=== PATIENT | male | born 1995 | race Caucasian/White ===

== ENCOUNTER 2022-10-05 12:41 | Emergency (ER) | payer OTHER, SELFPAY ==
--- NOTE | 2022-10-05 13:11 | ED_ITS ---
HPI - Nausea/Vomiting/Diarrhea General Chief complaint: Nausea/Vomiting/Diarrhea <Suzanne Chino CNP - Last Filed: 10/05/22 13:13> Stated complaint: bile nausea <Suzanne Chino CNP - Last Filed: 10/05/22 13:13> Time Seen by Provider: 10/05/22 15:20 <Suzanne Chino CNP - Last Filed: 10/05/22 13:13> Source: patient <Randy Painter DO - Last Filed: 10/05/22 15:29> Mode of arrival: ambulatory <Randy Painter DO - Last Filed: 10/05/22 15:29> Limitations: no limitations <DO Toribio Amezquita Last Filed: 10/05/22 15:29> History of Present Illness HPI Narrative: 27-year-old male presents emergency department with nausea vomiting diarrhea patient has had no recent antibiotic use he denies any fevers or chills states he has been able to work past week here for work note he denies any falls or injuries he had no vomiting this morning he denies chest pain shortness of breath patient does smoke marijuana daily denies having multiple ER visits but does vomit every morning and then does well. <Randy Painter DO - Last Filed: 10/05/22 15:29> MD elicited complaint: nausea, vomiting and diarrhea <DO Toribio Amezquita Last Filed: 10/05/22 15:29> Related Data Home medications: Previous Rx's Medication Instructions Recorded ondansetron 4 mg disintegrating 4 mg PO Q6H #14 tabs 10/05/22 tablet <Suzanne Chino CNP - Last Filed: 10/05/22 13:13> Allergies/Adverse reactions: Allergies Allergy/AdvReac Type Severity Reaction Status Date / Time No Known Allergies Allergy Verified 10/05/22 13:11 <Suzanne Chino CNP - Last Filed: 10/05/22 13:13> Review of Systems Review of Systems: Review of systems: General: Patient denies any fever chills recent illness or falls Musculoskeletal: Denies back pain or body aches or other injuries HEENT: denies headache, runny nose, ear pain Respiratory: denies shortness of breath, cough Cardiovascular: no chest pain or palpitations : denies dysuria, frequency Abdomen: Diarrhea nausea vomiting denies abdominal pain Extremities: no swelling, no pain Skin: no diaphoresis <Randy Painter DO - Last Filed: 10/05/22 15:29> Yes all other systems are reviewed and are negative <Randy Painter DO - Last Filed: 10/05/22 15:29> Physical Exam Vital Signs: Vital Signs: Last Vital Signs Temp 97 F 10/05/22 13:12 Pulse 80 10/05/22 13:12 Resp 16 10/05/22 13:12 BP 107/72 10/05/22 13:12 Pulse Ox 96 10/05/22 13:12 O2 Del Method 10/05/22 13:12 BMI result Body Mass Index 23.6 <Suzanne Chino PE ELECTRICAL ENGINEER - Last Filed: 10/05/22 13:13> Vital Signs: Last Vital Signs Temp 97 F 10/05/22 13:12 Pulse 80 10/05/22 13:12 Resp 16 10/05/22 13:12 BP 107/72 10/05/22 13:12 Pulse Ox 96 10/05/22 13:12 O2 Del Method 10/05/22 13:12 BMI result Body Mass Index 23.6 <Randy Chiujose DO - Last Filed: 10/05/22 15:29> General: Well-appearing well-nourished in no signs of distress HEENT: Normocephalic atraumatic Neck: No signs of JVD, no masses no tenderness or lymphadenopathy Cardiovascular: Regular rate and rhythm Respiratory: Clear to auscultation bilaterally Abdomen: Soft nontender no masses rectal exam performed guiac negative quality improvement coordinator (rn) confirmed. Extremities: Normal pedal pulses no signs of edema Skin: Dry warm no rashes Back: No tenderness full ROM <Randy DO Inocencio - Last Filed: 10/05/22 15:29> Course Course Course Narrative: This is an RME: Additional HPI, ROS, PE not included below will be deferred to primary provider. Patient is a 27 year old male who presents to the ED complaining of vomiting. States issues for years, but states worse over last few weeks. Every morning awakes, vomits large amount of yellow emesis with diarrhea, and associated pain. Denies pain at this time. Reports emesis only occurs in the morning, causing him to miss work for the past week. Plan: labs, urinalysis, viral testing <Suzanne Chino CNP - Last Filed: 10/05/22 13:13> Medical Decision Making Medical Decision Making MDM Narrative: Labs were all sent as well as serologies for COVID and flu her thinking back negative patient looks well on exam patient has no concerns for acute intra-abdominal process that requires CT scan or imaging patient is feeling fine at this time will send home with Ac. I did educate the patient on cannabis hyperemesis syndrome that can take up to 90 days for to get of system could explain as no help benefits with marijuana but he can cause this recurrent vomiting syndrome which can be disabling. Patient is okay with plan to go home. <Randy Painter DO - Last Filed: 10/05/22 15:29> Differential Diagnosis Differential Diagnoses: The differential diagnosis associated with the presentation includes <Randy Painter DO - Last Filed: 10/05/22 15:29> Cannabis hyperemesis hangover from drinking alcoholism pancreatitis hepatitis viral syndrome or anxiety. <Randy Painter DO - Last Filed: 10/05/22 15:29> Lab Data Result Diagrams: 10/05/22 13:37 10/05/22 13:37 <Suzanne Chino CNP - Last Filed: 10/05/22 13:13> Labs: Lab Results 10/05/22 10/05/22 10/05/22 Range/Units 13:37 13:37 13:37 WBC 6.4 (4.8-10.8) X10*3/uL RBC 4.88 (4.60-5.80) X10*6/uL Hgb 14.7 (14.0-18.0) g/dl Hct 42.1 (42.0-52.0) % MCV 86.3 (80.0-98.0) fL MCH 30.1 (27.0-33.0) pg MCHC 34.9 (31.0-36.0) g/dl RDW 12.6 (11.0-16.0) % Plt Count 232 (160-400) X10*3/uL MPV 9.0 L (9.4-12.4) fL Immature Gran % (Auto) 0.2 (0.0-0.4) % Neut % (Auto) 54.8 (45-73) % Lymph % (Auto) 36.5 (20-40) % [place] % (Auto) 6.4 (2-11) % Eos % (Auto) 1.6 (0-4) % Baso % (Auto) 0.5 (0-2) % Lymph # (Auto) 2.4 (1.2-4.9) X10*3/uL [place] # (Auto) 0.4 (0.1-1.2) X10*3/uL Eos # (Auto) 0.1 (0.0-0.4) X10*3/uL Baso # (Auto) 0.0 (0.0-0.2) X10*3/uL Abs Immat Gran (auto) 0.01 (0.00-0.03) X10*3/uL Absolute Neuts (auto) 3.5 (2.0-8.3) x10*3/uL Absolute Nucleated RBC 0.000 (0.0-0.012) X10*3/uL Nucleated RBC % (auto) 0.0 (0.0-0.2) /100WBC Sodium 141 (135-145) mmol/L Potassium 4.6 (3.3-5.1) mmol/L Chloride 103 (96-108) mmol/L Carbon Dioxide 28 (22-29) mmol/L Anion Gap 15 (12-20) BUN 13 (9-16) mg/dL Creatinine 0.84 (0.5-1.4) mg/dL Estim Creat Clear Calc 129.7 Estimated GFR > 60 Random Glucose 111 (60-115) mg/dL Calcium 9.7 (8.4-10.2) mg/dL Total Bilirubin 1.1 H (0.0-1.0) mg/dL AST 47 H (5-37) U/L ALT 108 H (0-40) U/L Alkaline Phosphatase 80 (39-117) U/L Total Protein 7.6 (6.5-8.0) g/dL Albumin 4.6 (3.5-5.0) g/dL Lipase 12 (8-78) U/L Urine Color Urine Appearance Urine pH (5.0-9.0) Ur Specific [place] (1.005-1.025) Urine Protein (Neg-Trace) mg/dL Urine Glucose (UA) (Negative) mg/dL Urine Ketones (Negative) mg/dL Urine Blood (Negative) Urine Nitrite (Negative) Ur Leukocyte Esterase (Negative) Urine RBC (0-2) /HPF Urine WBC (0-5) /HPF Ur Squamous Epith Cells (0-2) /HPF Urine Bacteria (None Seen) Hyaline Casts (0-2) /LPF COVID-19 (BRUNO) (Negative) COVID-19 Clin Com Influenza Type A ([place]) Negative (Negative) Influenza Type B ([place]) Negative (Negative) Influenza A & B Note See Note 10/05/22 10/05/22 Range/Units 13:37 13:42 WBC (4.8-10.8) X10*3/uL RBC (4.60-5.80) X10*6/uL Hgb (14.0-18.0) g/dl Hct (42.0-52.0) % MCV (80.0-98.0) fL MCH (27.0-33.0) pg MCHC (31.0-36.0) g/dl RDW (11.0-16.0) % Plt Count (160-400) X10*3/uL MPV (9.4-12.4) fL Immature Gran % (Auto) (0.0-0.4) % Neut % (Auto) (45-73) % Lymph % (Auto) (20-40) % [place] % (Auto) (2-11) % Eos % (Auto) (0-4) % Baso % (Auto) (0-2) % Lymph # (Auto) (1.2-4.9) X10*3/uL [place] # (Auto) (0.1-1.2) X10*3/uL Eos # (Auto) (0.0-0.4) X10*3/uL Baso # (Auto) (0.0-0.2) X10*3/uL Abs Immat Gran (auto) (0.00-0.03) X10*3/uL Absolute Neuts (auto) (2.0-8.3) x10*3/uL Absolute Nucleated RBC (0.0-0.012) X10*3/uL Nucleated RBC % (auto) (0.0-0.2) /100WBC Sodium (135-145) mmol/L Potassium (3.3-5.1) mmol/L Chloride (96-108) mmol/L Carbon Dioxide (22-29) mmol/L Anion Gap (12-20) BUN (9-16) mg/dL Creatinine (0.5-1.4) mg/dL Estim Creat Clear Calc Estimated GFR Random Glucose (60-115) mg/dL Calcium (8.4-10.2) mg/dL Total Bilirubin (0.0-1.0) mg/dL AST (5-37) U/L ALT (0-40) U/L Alkaline Phosphatase (39-117) U/L Total Protein (6.5-8.0) g/dL Albumin (3.5-5.0) g/dL Lipase (8-78) U/L Urine Color Yellow Urine Appearance Clear Urine pH 6.5 (5.0-9.0) Ur Specific [place] 1.025 (1.005-1.025) Urine Protein Negative (Neg-Trace) mg/dL Urine Glucose (UA) Negative (Negative) mg/dL Urine Ketones Negative (Negative) mg/dL Urine Blood Negative (Negative) Urine Nitrite Negative (Negative) Ur Leukocyte Esterase Trace H (Negative) Urine RBC 0-2 (0-2) /HPF Urine WBC 0-5 (0-5) /HPF Ur Squamous Epith Cells 0-2 (0-2) /HPF Urine Bacteria None Seen (None Seen) Hyaline Casts 0-2 (0-2) /LPF COVID-19 (BRUNO) Negative (Negative) COVID-19 Clin Com See Note Influenza Type A ([place]) (Negative) Influenza Type B ([facility]) (Negative) Influenza A & B Note <Suzanne Chino, PARRISH - Last Filed: 10/05/22 13:13> Lab Results 10/05/22 10/05/22 10/05/22 Range/Units 13:37 13:37 13:37 WBC 6.4 (4.8-10.8) X10*3/uL RBC 4.88 (4.60-5.80) X10*6/uL Hgb 14.7 (14.0-18.0) g/dl Hct 42.1 (42.0-52.0) % MCV 86.3 (80.0-98.0) fL MCH 30.1 (27.0-33.0) pg MCHC 34.9 (31.0-36.0) g/dl RDW 12.6 (11.0-16.0) % Plt Count 232 (160-400) X10*3/uL MPV 9.0 L (9.4-12.4) fL Immature Gran % (Auto) 0.2 (0.0-0.4) % Neut % (Auto) 54.8 (45-73) % Lymph % (Auto) 36.5 (20-40) % [place] % (Auto) 6.4 (2-11) % Eos % (Auto) 1.6 (0-4) % Baso % (Auto) 0.5 (0-2) % Lymph # (Auto) 2.4 (1.2-4.9) X10*3/uL [place] # (Auto) 0.4 (0.1-1.2) X10*3/uL Eos # (Auto) 0.1 (0.0-0.4) X10*3/uL Baso # (Auto) 0.0 (0.0-0.2) X10*3/uL Abs Immat Gran (auto) 0.01 (0.00-0.03) X10*3/uL Absolute Neuts (auto) 3.5 (2.0-8.3) x10*3/uL Absolute Nucleated RBC 0.000 (0.0-0.012) X10*3/uL Nucleated RBC % (auto) 0.0 (0.0-0.2) /100WBC Sodium 141 (135-145) mmol/L Potassium 4.6 (3.3-5.1) mmol/L Chloride 103 (96-108) mmol/L Carbon Dioxide 28 (22-29) mmol/L Anion Gap 15 (12-20) BUN 13 (9-16) mg/dL Creatinine 0.84 (0.5-1.4) mg/dL Estim Creat Clear Calc 129.7 Estimated GFR > 60 Random Glucose 111 (60-115) mg/dL Calcium 9.7 (8.4-10.2) mg/dL Total Bilirubin 1.1 H (0.0-1.0) mg/dL AST 47 H (5-37) U/L ALT 108 H (0-40) U/L Alkaline Phosphatase 80 (39-117) U/L Total Protein 7.6 (6.5-8.0) g/dL Albumin 4.6 (3.5-5.0) g/dL Lipase 12 (8-78) U/L Urine Color Urine Appearance Urine pH (5.0-9.0) Ur Specific [place] (1.005-1.025) Urine Protein (Neg-Trace) mg/dL Urine Glucose (UA) (Negative) mg/dL Urine Ketones (Negative) mg/dL Urine Blood (Negative) Urine Nitrite (Negative) Ur Leukocyte Esterase (Negative) Urine RBC (0-2) /HPF Urine WBC (0-5) /HPF Ur Squamous Epith Cells (0-2) /HPF Urine Bacteria (None Seen) Hyaline Casts (0-2) /LPF COVID-19 (BRUNO) (Negative) COVID-19 Clin Com Influenza Type A ([place]) Negative (Negative) Influenza Type B ([facility]) Negative (Negative) Influenza A & B Note See Note 10/05/22 10/05/22 Range/Units 13:37 13:42 WBC (4.8-10.8) X10*3/uL RBC (4.60-5.80) X10*6/uL Hgb (14.0-18.0) g/dl Hct (42.0-52.0) % MCV (80.0-98.0) fL MCH (27.0-33.0) pg MCHC (31.0-36.0) g/dl RDW (11.0-16.0) % Plt Count (160-400) X10*3/uL MPV (9.4-12.4) fL Immature Gran % (Auto) (0.0-0.4) % Neut % (Auto) (45-73) % Lymph % (Auto) (20-40) % [place] % (Auto) (2-11) % Eos % (Auto) (0-4) % Baso % (Auto) (0-2) % Lymph # (Auto) (1.2-4.9) X10*3/uL [place] # (Auto) (0.1-1.2) X10*3/uL Eos # (Auto) (0.0-0.4) X10*3/uL Baso # (Auto) (0.0-0.2) X10*3/uL Abs Immat Gran (auto) (0.00-0.03) X10*3/uL Absolute Neuts (auto) (2.0-8.3) x10*3/uL Absolute Nucleated RBC (0.0-0.012) X10*3/uL Nucleated RBC % (auto) (0.0-0.2) /100WBC Sodium (135-145) mmol/L Potassium (3.3-5.1) mmol/L Chloride (96-108) mmol/L Carbon Dioxide (22-29) mmol/L Anion Gap (12-20) BUN (9-16) mg/dL Creatinine (0.5-1.4) mg/dL Estim Creat Clear Calc Estimated GFR Random Glucose (60-115) mg/dL Calcium (8.4-10.2) mg/dL Total Bilirubin (0.0-1.0) mg/dL AST (5-37) U/L ALT (0-40) U/L Alkaline Phosphatase (39-117) U/L Total Protein (6.5-8.0) g/dL Albumin (3.5-5.0) g/dL Lipase (8-78) U/L Urine Color Yellow Urine Appearance Clear Urine pH 6.5 (5.0-9.0) Ur Specific [place] 1.025 (1.005-1.025) Urine Protein Negative (Neg-Trace) mg/dL Urine Glucose (UA) Negative (Negative) mg/dL Urine Ketones Negative (Negative) mg/dL Urine Blood Negative (Negative) Urine Nitrite Negative (Negative) Ur Leukocyte Esterase Trace H (Negative) Urine RBC 0-2 (0-2) /HPF Urine WBC 0-5 (0-5) /HPF Ur Squamous Epith Cells 0-2 (0-2) /HPF Urine Bacteria None Seen (None Seen) Hyaline Casts 0-2 (0-2) /LPF COVID-19 (BRUNO) Negative (Negative) COVID-19 Clin Com See Note Influenza Type A ([place]) (Negative) Influenza Type B ([facility]) (Negative) Influenza A & B Note <DO Toribio Amezquita Last Filed: 10/05/22 15:29> Discharge Plan Discharge Clinical Impression: Dehydration, Vomiting, Cannabis hyperemesis syndrome concurrent with and due to cannabis abuse <Suzanne Chino CNP - Last Filed: 10/05/22 13:13> Patient Disposition: Home, Self-Care <Suzanne Chino CNP - Last Filed: 10/05/22 13:13> Instructions: Acute Nausea and Vomiting (ED), Cannabis Abuse (ED) <Suzanne Chino CNP - Last Filed: 10/05/22 13:13> Additional Instructions: Please call to follow up with her doctor. <Suzanne Chino CNP - Last Filed: 10/05/22 13:13> Prescriptions: New ondansetron 4 mg tablet,disintegrating 4 mg PO Q6H Qty: 14 0RF <Suzanne Chino CNP - Last Filed: 10/05/22 13:13>
[2022-10-05 13:12] VITALS: BP 107/72; PULSE 80; RESP 16; TEMP 36.1; O2SAT 96; BMI 23.6
[2022-10-05 13:40] LABS: MANUAL DIFF FLAG NO
[2022-10-05 13:43] LABS: Basophils Percent Auto 0.5 % (0-2); Eosinophils Absolute Auto 0.1 X10*3/uL (0.0-0.4); Eosinophils Percent Auto 1.6 % (0-4); Hematocrit 42.1 % (42.0-52.0); Hemoglobin 14.7 g/dl (14.0-18.0); Imm Gran Abs Auto 0.01 X10*3/uL (0.00-0.03); Imm Gran Pct Auto 0.2 % (0.0-0.4); Lymphocytes Absolute Auto 2.4 X10*3/uL (1.2-4.9); Lymphocytes Percent Auto 36.5 % (20-40); Mean Corpuscular HGB Conc 34.9 g/dl (31.0-36.0); Mean Corpuscular Hemoglobin 30.1 pg (27.0-33.0); Mean Corpuscular Volume 86.3 fL (80.0-98.0); Monocytes Absolute Auto 0.4 X10*3/uL (0.1-1.2); Monocytes Percent Auto 6.4 % (2-11); Neutrophils Absolute Auto 3.5 x10*3/uL (2.0-8.3); Neutrophils Percent Auto 54.8 % (45-73); Platelet Count 232 X10*3/uL (160-400); Red Blood Count 4.88 X10*6/uL (4.60-5.80); Red Cell Distribution Width 12.6 % (11.0-16.0); White Blood Count 6.4 X10*3/uL (4.8-10.8)
[2022-10-05 13:48] LABS: Appearance Urine Clear; Color Urine Yellow; Glucose Urine UA Negative (Negative); Leukocyte Esterase Urine Trace (Negative); Nitrite Urine Negative (Negative); PH 6.5 (5.0-9.0); Specific Gravity - Urine 1.025 (1.005-1.025); UMIC TRIGGER UACC YES; Urine Blood Negative (Negative); Urine Ketones Negative (Negative); Urine Protein Negative (Neg-Trace)
[2022-10-05 13:50] LABS: Bacteria Urine None Seen (None Seen); Hyaline Casts Urine 0-2 /LPF (0-2); RBC Urine 0-2 /HPF (0-2); Squamous Epithelial Cell Urine 0-2 /HPF (0-2); WBC Urine 0-5 /HPF (0-5)
[2022-10-05 13:56] LABS: Alanine Aminotransferase 108 U/L (0-40); Albumin Level 4.6 g/dL (3.5-5.0); Alkaline Phosphatase 80 U/L (39-117); Anion Gap 15 (12-20); Aspartate Amino Transferase 47 U/L (5-37); Bilirubin Total 1.1 mg/dL (0.0-1.0); Blood Urea Nitrogen 13 mg/dL (9-16); Calcium 9.7 mg/dL (8.4-10.2); Carbon Dioxide 28 mmol/L (22-29); Chloride 103 mmol/L (96-108); Creatinine Clr Calc Pharmacy 129.7; Estimated Glomerular Filt Rate > 60; Glucose Random 111 mg/dL (60-115); Lipase 12 U/L (8-78); Potassium 4.6 mmol/L (3.3-5.1); Sodium 141 mmol/L (135-145); Total Protein 7.6 g/dL (6.5-8.0)
[2022-10-05 14:08] LABS: COVID-19 Test Negative (Negative); IDNOW Serial# 16C4AD1C; IDNOW Serial# BCCEAD1C; Influenza A Negative (Negative); Influenza B2 Negative (Negative)
== END 2022-10-05 15:46 | disposition home or self-care (01) ==
PROVIDERS: Nurse Practitioner Family; Emergency Provider Student in an Organized Health Care Education/Training Program
DX: E86.0 Dehydration (principal); R11.2 Nausea with vomiting, unspecified; F12.920 Cannabis use, unspecified with intoxication, uncomplicated; Z20.822 Contact with and (suspected) exposure to COVID-19; Z20.828 Contact with and (suspected) exposure to other viral communicable diseases; Z79.899 Other long term (current) drug therapy
CPT/HCPCS: 80053; 81001; 83690; 85025; 87502; 87635; 99282; 99283

== ENCOUNTER 2022-12-28 10:35 | Emergency (ER) | payer OTHER, SELFPAY ==
[2022-12-28 10:37] VITALS: BP 111/82; PULSE 110; RESP 20; TEMP 36.7; O2SAT 98; BMI 23.0
--- NOTE | 2022-12-28 12:49 | PC.NURSE ---
patient brought into room. patient stated 8/10 lumbar back pain. Patient received a warm blanket. patient resting waiting for provider.
--- NOTE | 2022-12-28 13:07 | ED_ITS ---
HPI - Back Pain/Injury General Chief Complaint: Back Pain/Injury Stated Complaint: Lower back pain Time Seen by Provider: 12/28/22 12:53 Source: patient Mode of arrival: ambulatory Limitations: no limitations History of Present Illness HPI Narrative: 27-year-old male who presents emergency department for evaluation of left lower back pain. Patient states that around 930 he was walking and smoking joint. He states that he coughed suddenly and developed a severe pain in his left lower back area. Since that time any movement especially twisting gives him worst pain. He describes the pain is a sharp pain that does radiate to his left buttocks. He did not take any medications. He states this is 1st episode of this type of pain. He had no numbness or weakness in his extremities. He had no loss of bowel or bladder control. He denied being ill in any way prior to the onset of his symptoms Related Data Previous Rx's Medication Instructions Recorded ondansetron 4 mg disintegrating 4 mg PO Q6H #14 tabs 10/05/22 tablet acetaminophen 500 mg tablet 1,000 mg PO Q6H PRN fever or pain 12/28/22 (Tylenol Extra Strength) #20 tabs cyclobenzaprine 10 mg tablet 10 mg PO TID PRN pain, muscle 12/28/22 spasm #15 tabs ibuprofen 400 mg tablet 400 mg PO TID PRN fever or pain 12/28/22 #30 tabs Allergies Allergy/AdvReac Type Severity Reaction Status Date / Time No Known Allergies Allergy Verified 10/05/22 13:11 Review of Systems Review of Systems: Yes all other systems are reviewed and are negative [facility] Past Medical History [facility] Narrative: Past medical history: Asthma. Past surgical history: None. Social history: He smokes cigarettes daily , he denies alcohol and drug use Social History Social History Advance Directives: No Advance Directives Information Provided: No Physical Exam Vital Signs: Vital Signs: Last Vital Signs Temp 98.1 F 12/28/22 10:37 Pulse 110 H 12/28/22 10:37 Resp 20 12/28/22 10:37 BP 111/82 12/28/22 10:37 Pulse Ox 98 12/28/22 10:37 O2 Del Method Room Air 12/28/22 10:37 BMI result Body Mass Index 23.0 Const: General: cooperative and no acute distress Orientation/consciousness: oriented to person and oriented to place Limitations: no limitations HEENT: Head: Yes normal to inspection, Yes normocephalic and Yes atraumatic Ears: external ears normal General nose exam: Normal external nose present Face and sinus: Yes normal facial exam Mouth: Normal oral and palatal mucosa present Throat: Yes posterior oropharynx normal Eyes: General: appearance normal, both eyes and all related structures Pupils: Equal, round and reactive pupils present Neck: Neck: Yes normal visual inspection, Yes no lymphadenopathy, Yes trachea midline and Yes supple Chest: Chest palpation & inspection: normal inspection of the chest and normal palpation of entire chest wall Resp: Effort & Inspection: normal respiratory effort and able to speak in complete sentences Auscultation: clear to auscultation bilaterally Cardio: Rate: regular rate Rhythm: regular rhythm Heart sounds: S1 normal heart sound present, S2 normal heart sound present and no murmurs GI: Inspection: Yes normal to inspection Palpation (GI): Soft to palpation, nontender and no guarding Auscultation: normal bowel sounds Back/Spine/Pelvis: Other: Tenderness with palpation of the paraspinal muscles in left lumbar sacral area with spasm of these muscles, no point tenderness over his vertebrae, negative st raight leg raises bilaterally Skin: General skin exam: no rashes or lesions noted Neuro: General: oriented to person and oriented to place Cranial nerves: Yes CN's II-XII intact bilaterally and Yes Equal, round and reactive pupils present Cognition (Neuro): normal cognition Motor exam (neuro): 5/5 motor strength present throughout Extrem: General: Yes normal to inspection Psych: Appearance: grossly normal Speech and movement: Normal speech and movement present Affect: normal affect Attitude: cooperative Thought process: Normal thought process present Thought content: Normal thought content present Medications Administered Discontinued Medications Generic Name Dose Route Start Last Admin Trade Name Freq PRN Reason Stop Dose Admin Ibuprofen 400 mg 12/28/22 13:05 12/28/22 13:10 Ibuprofen 400 Mg Tablet PO 12/28/22 13:06 400 mg ONCE STA Administration Medical Decision Making Medical Decision Making MDM Narrative: 27-year-old male who had a sudden onset left lower back pain after coughing. Patient's examination did reveal tenderness palpation of the left paraspinal muscles with spasm of these muscles and no point tenderness over his vertebrae. His neurologic exam was nonfocal. Patient's findings are consistent with musculoskeletal strain. He was given prescriptions for Tylenol, ibuprofen and Flexeril. He is also given a work note. Differential Diagnosis Differential diagnosis includes was not limited to lumbar sacral muscle skeletal strain, lumbar sacral muscle spasm, sciatica, disc disease Discharge Plan Discharge Clinical Impression: Strain of lumbar region Patient Disposition: Home, Self-Care Instructions: Low Back Strain (ED) Additional Instructions: Back Pain Discharge Instructions: Take Motrin (ibuprofen) 400 mg pills, 1 pills every 6 hours as needed for pain. Take Tylenol (acetaminophen) 500 mg pills, 2 pills every 6 hours as needed for pain. Take Flexeril (cyclobenzaprine) 10 mg pills, 1 pill every 8 hours as needed for pain or muscle spasm. This is a prescription medication. This medication will make you sleepy, therefore do not drive or work while taking this medication. Apply ice for 15 minutes to the area that hurts on your back, then apply a heating a pad on low for 15 minutes. Do this 4-6 times a day to help reduce the pain in your back. Continue with normal activities as tolerated since staying in bed and not moving around will make your pain worse. Please return to the Emergency Department or see your doctor immediately if your symptoms get worse or if you develop any new symptoms that are concerning you. Follow up with your doctor in 2 day. Please read the other printed discharge instructions on back pain. Please see the work note Prescriptions: New cyclobenzaprine 10 mg tablet 10 mg PO TID PRN (Reason: pain, muscle spasm) Qty: 15 0RF acetaminophen [Tylenol Extra Strength] 500 mg tablet 1,000 mg PO Q6H PRN (Reason: fever or pain) Qty: 20 0RF ibuprofen 400 mg tablet 400 mg PO TID PRN (Reason: fever or pain) Qty: 30 0RF No Action ondansetron 4 mg tablet,disintegrating 4 mg PO Q6H Qty: 14 0RF Stand Alone Forms: Work/School Release Interventions: ED Discharge Assessment Last Done: 12/28/22 13:36 Discharge Date/Time: 12/28/22 13:36
[2022-12-28] MEDS: Ibuprofen 400 MG TABLET PO (13:10)
== END 2022-12-28 13:36 | disposition home or self-care (01) ==
PROVIDERS: Emergency Provider Emergency Medicine Emergency Medical Services
DX: M54.50 Low back pain, unspecified (principal); Z79.899 Other long term (current) drug therapy
CPT/HCPCS: 99283

== ENCOUNTER 2024-01-25 08:58 | Emergency (ER) | payer OTHER, SELFPAY ==
--- NOTE | ~2024-01-25 | XR_ITS ---
EXAMINATION: XR SHOULDER, LEFT CLINICAL INFORMATION: Status-post reduction of left glenohumeral dislocation. COMPARISON: Left shoulder radiographs of the same date. TECHNIQUE: AP neutral and scapular Y views of the left shoulder are submitted. FINDINGS: There is interim reduction of the patient's previously noted left glenohumeral dislocation. The glenohumeral joint is now intact. The acromioclavicular and coracoclavicular intervals are normal. No fracture or dislocation is seen. There is no soft tissue calcification or foreign body. No left pneumothorax is seen. XR/XR shoulder LT min 2V IMPRESSION: There is interim reduction of a left glenohumeral dislocation. No fracture is seen.
--- NOTE | ~2024-01-25 | XR_ITS ---
EXAMINATION: XR SHOULDER, LEFT CLINICAL INFORMATION: Pain status-post fall. COMPARISON: None available. TECHNIQUE: AP and scapular Y views of the left shoulder are submitted. FINDINGS: An anterior glenohumeral dislocation is noted. The acromioclavicular and coracoclavicular intervals are normal. No fracture is seen. There is no soft tissue calcification or foreign body. No left pneumothorax is seen. XR/XR shoulder LT min 2V IMPRESSION: Findings are consistent with an anterior left glenohumeral dislocation. No fracture is noted.
[2024-01-25 08:59] VITALS: BP 110/67; PULSE 65; RESP 19; TEMP 36.6; O2SAT 98; BMI 22.1
--- NOTE | 2024-01-25 09:50 | ED.EXTPRO ---
HPI - Extremity Problem General Chief complaint: Extremity Injury, Upper Stated complaint: Fell down stairs - L shoulder injury Time Seen by Provider: 01/25/24 09:50 Source: patient Mode of arrival: ambulatory Limitations: no limitations History of Present Illness ED Provider: Sandi Dobson PA-C HPI Narrative: Patient is a 28 year old assigned male at with a history of multiple left shoulder dislocations presenting to the emergency department today with left shoulder pain. Patient states that he slipped and slid down some steps and that caused his left shoulder to dislocate. Patient denies any head strike, loss of consciousness, dizziness, lightheadedness, abdominal pain, nausea, vomiting, fever, chills, blurry vision, double vision, loss of vision, chest pain, difficulty breathing, shortness of breath, back pain, night sweats, pain with urination, increased urinary frequency, increased urinary urgency, blood in his urine or stool, syncope or a near syncopal episode, bowel incontinence, bladder incontinence, bowel retention, bladder retention, or any other complaints at this time. Onset (ago): hour(s) (2) Pain Consistency: constant Location: left and upper extremity Severity scale (1-10): 4 Relieving factors: immobilization Exacerbating factors: range of motion Associated symptoms: denies other symptoms Related Data Previous Rx's ?Medication ?Instructions ?Recorded ondansetron 4 mg disintegrating 4 mg PO Q6H #14 tabs 10/05/22 tablet acetaminophen 500 mg tablet 1,000 mg (2 x 500 mg) PO Q6H PRN 12/28/22 (Tylenol Extra Strength) fever or pain #20 tabs cyclobenzaprine 10 mg tablet 10 mg PO TID PRN pain, muscle 12/28/22 spasm #15 tabs ibuprofen 400 mg tablet 400 mg PO TID PRN fever or pain 12/28/22 #30 tabs Allergies Allergy/AdvReac Type Severity Reaction Status Date / Time No Known Allergies Allergy Verified 01/25/24 09:01 Review of Systems Constitutional: Constitutional: Reports no additional constitutional complaints, Denies chills, Denies fever(s) and Denies night sweats Eyes: Eyes: Reports no additional eye complaints, Denies blurry vision, Denies change in vision, Denies diplopia, Denies eye discharge, Denies loss of vision and Denies eye pain ENT: Denies dizziness Cardiovascular: Cardiovascular: Reports no additional cardiovascular complaints, Denies chest pain, Denies lightheadedness, Denies Loss of Consciousness and Denies dyspnea Respiratory: Respiratory: Reports no additional respiratory complaints and Denies dyspnea Gastrointestinal: Gastrointestinal: Reports no additional gastrointestinal complaints, Denies abdominal pain, Denies melena, Denies hematochezia, Denies change in bowel habits and Denies change in stool character Genitourinary: Genitourinary: Reports no additional male genitourinary complaints, Denies hematuria, Denies oliguria, Denies difficulty urinating, Denies dysuria, Denies urinary frequency, Denies urinary hesitancy, Denies urinary incontinence and Denies urinary urgency Musculoskeletal: Musculoskeletal: Reports no additional musculoskeletal complaints, Denies numbness and Denies tingling Comments: left shoulder pain Neurologic: Denies dizziness, Denies loss of vision, Denies numbness and Denies tingling Psychiatric: Psychiatric: Reports no additional psychiatric complaints Endocrine: Endocrine: Reports no additional endocrine complaints Hematologic/Lymphatic: Hematologic/Lymphatic: Reports no additional hematologic/lymphatic complaints Allergic/Immunologic: Allergic/Immunologic: Reports no additional allergic/immunologic complaints PMFSH Past Medical History Attestation statement: The following information was validated with the patient. Source: old records reviewed and nursing notes reviewed Social History Social History Advance Directives: No Advance Directives Information Provided: Yes Physical Exam Vital Signs: Vital Signs: Last Vital Signs Temp 98 F 01/25/24 10:27 Pulse 65 01/25/24 10:27 Resp 19 01/25/24 10:27 BP 110/67 01/25/24 10:27 Pulse Ox 98 01/25/24 08:59 O2 Del Method Room Air 01/25/24 10:27 BMI result Body Mass Index 22.1 Const: General: cooperative, no acute distress, alert and awake Nutritional Appearance: well nourished Orientation/consciousness: patient oriented x3 Limitations: no limitations HEENT: Head: Yes normal to inspection and Yes atraumatic Ears: hearing grossly normal bilaterally and external ears normal General nose exam: Normal external nose present, no nasal discharge noted and no epistaxis Face and sinus: Yes normal facial exam, No abrasion and No laceration Mouth: Normal oral and palatal mucosa present, no drooling and no muffled voice Eyes: General: appearance normal, both eyes and all related structures Periorbital: periorbital findings normal Eyelids: Yes eyelids normal Conjunctivae: conjunctivae normal Pupils: Equal, round and reactive pupils present EOM: EOMs intact bilaterally Neck: Neck: Yes normal visual inspection, Yes full ROM and Yes no lymphadenopathy Chest: Chest palpation & inspection: normal inspection of the chest Resp: Effort & Inspection: normal respiratory effort and able to speak in complete sentences GI: Inspection: Yes normal to inspection Neuro: General: patient oriented x3 and moves all extremities Cranial nerves: Yes Equal, round and reactive pupils present Cognition (Neuro): normal cognition Motor exam (neuro): 5/5 motor strength present throughout Sensory Exam: Normal double simultaneous stimulation for sensation Coordination: [id number] test normal Extrem: Other: left shoulder anteriorly dislocated General: Yes capillary refill normal Psych: Appearance: grossly normal Mental Status: mental status grossly normal Affect: normal affect Attitude: cooperative Thought process: Normal thought process present Thought content: Normal thought content present Insight: Good insight present (Psych) Medical Decision Making Medical Decision Making MDM Narrative: Patient is a 28 year old assigned male at with a history of multiple left shoulder dislocations presenting to the emergency department today with left shoulder pain / dislocation. Patient's physical exam showed an anteriorly dislocated left shoulder. Patient's initial left shoulder x-ray showed an anterior dislocation. I explained my physical exam findings as well as all test results to the patient. I answered all questions asked by the patient. With the help of my attending physician, Dr. Kelly, the patient's left shoulder was reduced, without incident. Patient's PMS was intact prior to and after reduction as well as before and after the left upper extremity was placed in a sling. Patient's repeat shoulder x-ray confirmed successful reduction. I stressed the importance of the patient taking his medication as prescribed. I stressed the importance of the patient following up with his primary care provider and an orthopedic provider. I stressed the importance of the patient returning to the emergency department immediately if his symptoms were to worsen or if he were to develop any dizziness, shortness of breath, difficulty breathing, chest pain, blurry vision, loss of vision, nausea, vomiting, abdominal pain, fever, chills, back pain, or any other complaints. Patient verbalized agreement and understanding with this treatment plan and discharge. Differential Diagnosis Differential Diagnoses: The differential diagnosis associated with the presentation includes Shoulder pain Shoulder dislocation Humerus fracture Admission/Observation Consideration of admission/observation: Escalation of care including admission/observation considered Patient would have been admitted to the hospital had his work up had any findings where hospital admission was appropriate and his clinical presentation warranted hospital admission. Independent Interpretation I performed an independent interpretation of an: Plain X-Ray Interpretation: My interpretation is in agreement with the radiologist's impression of these imaging studies. The PACS system was down during this patient's encounter. Dr. Hoffmann, the radiologist, performed readings on these images. The initial x-ray confirmed a left anterior shoulder dislocation. The repeat, post reduction, confirmed successful reduction of the previously mentioned dislocation. Radiology Impression Discussion of test interpretation with radiology: I have reviewed the radiologist's reading. Procedures Orthopedic Joint Reduction Joint #1: Time Out Performed: Yes Side: left Joint Reduction Location: shoulder Analgesia: none Shoulder Technique Used (if applicable): traction/counter-traction and scapula manipulation Post-reduction neuro exam: intact Post-reduction vascular: intact Post Reduction X-Ray Obtained: Yes Post Reduction X-Ray Results: reduced Splint Applied: Yes Patient Tolerated Procedure: well Orthopedic Splinting/Casting Injury #1: Side: left Upper Extremity Injury Location: shoulder Upper Extremity Immobilizer: sling/shoulder immobilizer Critical Care Time Critical Care Time Critical Care Time: Yes Total Critical Care Time: 34 Attestation: I spent 34 minutes of Critical Care Time with this patient. This does not include time spent on separately reported billable procedures. Discharge Plan Discharge Clinical Impression: Dislocated shoulder Patient Disposition: Home, Self-Care Instructions: Shoulder Dislocation (ED) Additional Instructions: Follow up with your primary care provider and an orthopedic provider. Keep your left upper extremity in the sling. Every hour, remove the sling and extend your elbow to prevent the elbow freezing. Return to the emergency department immediately if your symptoms worsen or if you develop any dizziness, shortness of breath, difficulty breathing, chest pain, blurry vision, loss of vision, nausea, vomiting, abdominal pain, fever, chills, back pain, or any other complaints. Prescriptions: No Action ondansetron 4 mg tablet,disintegrating 4 mg PO Q6H Qty: 14 0RF cyclobenzaprine 10 mg tablet 10 mg PO TID PRN (Reason: pain, muscle spasm) Qty: 15 0RF acetaminophen [Tylenol Extra Strength] 500 mg tablet 1,000 mg PO Q6H PRN (Reason: fever or pain) Qty: 20 0RF ibuprofen 400 mg tablet 400 mg PO TID PRN (Reason: fever or pain) Qty: 30 0RF Referrals: [facility] [place] Family Medicine [Provider Group] (Call to establish and follow up with a primary care provider. If you already have a primary care provider, please follow up with them.) [facility] [place] [facility] [Provider Group] [facility] [place] [facility] [Provider Group] [facility] [place] [facility] [Provider Group] (Call to establish and follow up with an orthopedic provider.) Stand Alone Forms: Work/School Release Interventions: ED Discharge Assessment Last Done: 01/25/24 10:27 Discharge Date/Time: 01/25/24 10:28 Print Language: Setswana
--- NOTE | 2024-01-25 10:07 | PC.NURSE ---
LUE placed back into correct position by dr. dwyer/MARIOLA sheldon. pt tolerated well. sling applied to extremity. pt waiting for xray results to confirm placement. plan of care ongoing.
[2024-01-25 10:27] VITALS: BP 110/67; PULSE 65; RESP 19; TEMP 36.6
== END 2024-01-25 10:28 | disposition home or self-care (01) ==
PROVIDERS: Emergency Provider Emergency Medicine
DX: M24.412 Recurrent dislocation, left shoulder (principal); M25.512 Pain in left shoulder
CPT/HCPCS: 23650; 73030; 99282; 99283; 99284

== ENCOUNTER 2024-05-29 09:54 | Emergency (ER) | payer OTHER, SELFPAY ==
--- NOTE | ~2024-05-29 | XR_ITS ---
EXAMINATION: XR SHOULDER, LEFT CLINICAL INFORMATION: Pain, question dislocation COMPARISON: Prior x-rays 01/25/2024 TECHNIQUE: Four views of the left shoulder. FINDINGS: No evidence of acute fracture. Glenohumeral and acromioclavicular alignment is anatomic with normal joint space. No abnormal soft tissue calcifications. XR/XR shoulder LT min 2V IMPRESSION: No radiographic evidence of acute fracture. Electronically signed by: Winston Pavon MD 05/29/2024 10:49 AM EDT
[2024-05-29 09:58] VITALS: BP 148/96; PULSE 106; RESP 18; TEMP 36.6; O2SAT 97; BMI 22.1
== END 2024-05-29 13:17 | disposition left against medical advice (07) ==
PROVIDERS: Emergency Provider Emergency Medicine
DX: M25.512 Pain in left shoulder (principal); Z53.21 Procedure and treatment not carried out due to patient leaving prior to being seen by health care provider
CPT/HCPCS: 73030; 99281

== ENCOUNTER 2024-11-23 16:31 | Emergency (ER) | payer OTHER, SELFPAY | END 2024-11-23 17:04 | disposition left against medical advice (07) | PROVIDERS: Emergency Provider Emergency Medicine | DX: R11.2 Nausea with vomiting, unspecified (principal); Z53.21 Procedure and treatment not carried out due to patient leaving prior to being seen by health care provider ==

== ENCOUNTER 2025-02-15 14:48 | Emergency (ER) | payer OTHER, SELFPAY ==
[2025-02-15] VITALS (53 sets, daily range): BP systolic 64–208; BP diastolic 33–116; PULSE 69–148; RESP 17–38; TEMP 24.6–39.4; O2SAT 76–100; BMI 22.4
--- NOTE | ~2025-02-15 | XR_ITS ---
CLINICAL HISTORY: post intubatuion and post IJ insertion Single view of the chest. COMPARISON: None provided. FINDINGS: Endotracheal tube terminates 4.4 cm above the sandra. Left IJ central venous line tip overlies the cavoatrial junction. Enteric tube extends into the abdomen with side hole overlying the expected location of the stomach body and tip extending outside the field of view. Normal heart size. Multifocal patchy airspace opacities consistent with multifocal pneumonia. No pleural effusion. No pneumothorax. No acute fracture. IMPRESSION: 1. Endotracheal tube terminates 4.4 cm above the sandra. 2. Left IJ central venous line tip terminates at the cavoatrial junction. This document has been electronically signed by: Isac Knight MD on 02/15/2025 18:25:30
--- NOTE | ~2025-02-15 | CT_ITS ---
CLINICAL HISTORY: PE CT angiography chest with contrast. 3D Postprocessing. Comparison: None provided Findings: Motion and streak artifact limit evaluation. The heart size is normal. RV/LV ratio is normal. Unremarkable thoracic aorta and great vessels. No aneurysm. No central or large proximal pulmonary emboli. Remaining pulmonary arteries are poorly opacified, not well evaluated. Mediastinal and hilar lymphadenopathy, likely reactive. Heterogeneous subcentimeter thyroid nodules in the right. Endotracheal and enteric tubes. Dense right lower lobe consolidation with innumerable multifocal patchy and nodular consolidations with intermixed ground-glass attenuation. Some of the nodules are solid and some are cavitating. For example a cavitating focus in the right lower lobe amongst the dense consolidations series 6, image 93 measuring 8 mm. No significant pleural effusion or pneumothorax. Hepatomegaly with steatosis. The bones are intact. IMPRESSION: Suboptimal exam. 1. No central or large proximal pulmonary emboli. Remaining pulmonary arteries are poorly opacified, not well evaluated. 2. Mediastinal and hilar lymphadenopathy, likely reactive. 3. Yutcu-[id number]-oyws-left mixed airspace disease including solid/cavitary nodules as described. Differentials include cavitary pneumonia, septic emboli, inflammatory/granulomatous etiologies, malignancy felt to be less likely not entirely excluded however. Clinical correlation with attention on follow-up advised. This document has been electronically signed by: Benjamin Kahn MD on 02/15/2025 19:27:08
--- NOTE | ~2025-02-15 | XR_ITS ---
EXAMINATION: XR CHEST CLINICAL INFORMATION: sob COMPARISON: None available. TECHNIQUE: Frontal view of the chest was obtained. FINDINGS: The cardiac, hilar, and mediastinal contours are normal. There are numerous bilateral round mass like opacities in both lungs, suspicious for neoplasm. Other etiologies not excluded. No pneumothorax or effusion. No focal osseous or soft tissue abnormality. XR/XR chest 1V IMPRESSION: Numerous round and oval masslike opacities throughout both lungs. Metastatic disease is a consideration, as well as septic embolic disease. Other etiologies not excluded. There are no effusions. Electronically signed by: Walter Valdivia MD 02/15/2025 04:25 PM EDT
--- NOTE | 2025-02-15 14:49 | ECG_ITS ---
Test Reason : CHEST PAIN Blood Pressure : */* mmHG Vent. Rate : 135 BPM Atrial Rate : * BPM P-R Int : * ms QRS Dur : 94 ms QT Int : 338 ms P-R-T Axes : * 77 30 degrees QTcB Int : 507 ms Supraventricular tachycardia Incomplete right bundle branch block Nonspecific ST abnormality Abnormal ECG No previous ECGs available Referred By: Liyah Montesinos Electronically Signed By: Ray Walden
--- NOTE | 2025-02-15 14:58 | ED_ITS ---
HPI - Chest Pain General Chief Complaint: General Medical Stated Complaint: Chest pain 5 days, spine infect? Time Seen by Provider: 02/15/25 15:07 Source: patient Mode of arrival: ambulatory Limitations: no limitations History of Present Illness ED Provider: HPI narrative: 30-year-old with history of polysubstance use disorder, injects cocaine and fentanyl, has been having neck stiffness, difficulty lifting in his neck, no bowel or bladder dysfunction, no numbness or weakness in his legs, endorses painful stiff arms and shoulders, does not feel well, chest pain or shortness of breath due to upper back pain. Has had prior history of spinal epidural abscess in states symptoms started similar to this. Has had IR drainage apparently. Related Data Previous Rx's ?Medication ?Instructions ?Recorded ondansetron 4 mg disintegrating 4 mg PO Q6H #14 tabs 0 10/05/22 tablet acetaminophen 500 mg tablet 1,000 mg (2 x 500 mg) PO Q 6H PRN 12/28/22 (Tylenol Extra Strength) fever or pain #20 tabs cyclobenzaprine 10 mg tablet 10 mg PO TID PRN pain, mu scle 12/28/22 spasm #15 tabs ibuprofen 400 mg tablet 400 mg PO TID PRN fever or p ain 12/28/22 #30 tabs Allergies Allergy/AdvReac Type Severity Reaction Status Date / Time No Known Allergies Allergy Verified 02/15/25 15:01 [facility] Social History Social History Use of substances other than those prescribed or required for medical reasons: Yes Advance Directives: No Advance Directives Information Provided: Yes Physical Exam 2 Vital Signs: Vital Signs: Last Vital Signs Temp 98.8 F 02/15/25 22:57 Pulse 100 02/15/25 22:57 Resp 24 H 02/15/25 22:57 BP 179/101 H 02/15/25 22:57 Pulse Ox 100 02/15/25 22:57 O2 Del Method Mechanical Ventil ation 02/15/25 22:57 FiO2 30 02/15/25 19:42 BMI result Body Mass Index 22.4 Course Course Course Narrative: This is a Rapid Medical Examination (RME) performed by Domo Montesinos PA-C in triage. Full HPI, ROS, assessment and treatment plan per primary provider in the Main ED. 30 y/o male with history of opioid use disorder on Sublocade (received today), active IVDA last use yesterday, history of cervical epidural abscess presenting with 5 days of severe chest pains, diffuse weakness (LE>UE), body aches, difficulty holding up his head. reports difficulty urinating and walking. Plan: labs, STAT MRI screen for epidural abscess Reevaluation(s) Reevaluation #1: spoke with patient's Aunt Eva [phone] and provided medical update including that he is intubated on mechanical ventilation and on vasopressors for septic shock. all questions answered at this time. she would like updates on his transfer. will update when more information is available. Time: 17:54 Reevaluation #2: spoke with MICU fellow at [facility] and patient has been accepted to [facility] ICU under Dr. Iglesias Images sent over by radiology. Time: 18:58 Reevaluation #3: 02/15/25 22:30: Julian Talbert MD I assumed care of this patient from my colleague, physician financial administrative assistant Liyah Montesinos pending patient's transport to [facility] by critical care ambulance. The patient's father, Khris Schmidt did call the emergency department and I did inform him of his sons presentation, condition and the need to transfer him to [facility]. The seater assembler critical care team could only transport the patient on two drips therefore the Precedex drip and the fentanyl drip were stopped since he has your being used for sedation and agitation only. Patient was continued on propofol and Levophed. The paramedics were given orders to give the patient fentanyl 1000 mcg IV Q 10 minutes as needed for agitation and Versed 4 mg IV Q 10 minutes agitation. The patient's blood pressure prior to transport was 179/101 and the patient's Levophed drip was decreased. Medications Administered Discontinued Medications Generic Name Dose Route Start Last Admin Trade Name Freq PRN Reason Stop Dose Admin Diazepam 5 mg 02/15/25 15:50 02/15/25 16:53 Diazepam 10 Mg/2 Ml Cartridge IVPUSH 5 mg ONCE PRN Administration anxiety/restlessness Diazepam 10 mg 02/15/25 19:38 02/15/25 19:41 Diazepam 10 Mg/2 Ml Cartridge IVPUSH 02/15/25 19:39 10 mg STAT STA Administration Diazepam 10 mg 02/15/25 20:38 02/15/25 20:42 Diazepam 10 Mg/2 Ml Cartridge IVPUSH 02/15/25 20:39 10 mg STAT STA Administration Diazepam 10 mg 02/15/25 21:00 02/15/25 21:04 Diazepam 10 Mg/2 Ml Cartridge IVPUSH 02/15/25 21:01 10 mg STAT STA Administration Epinephrine 0.1 mg 02/15/25 17:17 02/15/25 17:17 Epinephrine 1 Mg/Ml Vial IVPUSH 02/15/25 17:18 0.1 mg STAT STA Administration Etomidate 20 mg 02/15/25 17:32 02/15/25 17:15 Etomidate 20 Mg/10 Ml Vial IVPUSH 02/15/25 17:33 20 mg STAT STA Administration Fentanyl 100 mcg 02/15/25 21:34 02/15/25 21:37 Fentanyl Citrate/Pf 100 Mcg/2 Ml Vial IVPUSH 02/15/25 21:35 100 mcg ONCE ONE Administration Protocol Fentanyl 100 mcg 02/15/25 22:01 02/15/25 22:05 Fentanyl Citrate/Pf 100 Mcg/2 Ml Vial IVPUSH 02/15/25 22:02 100 mcg ONCE ONE Administration Protocol Hydromorphone HCl 2 mg 02/15/25 15:47 02/15/25 15:56 Hydromorphone Hcl 2 Mg/Ml Vial IVPUSH 02/15/25 15:48 2 mg ONCE ONE Administration Protocol Hydromorphone HCl 2 mg 02/15/25 19:24 02/15/25 19:28 Hydromorphone Hcl 2 Mg/Ml Vial IVPUSH 02/15/25 19:25 2 mg ONCE ONE Administration Protocol Hydromorphone HCl 2 mg 02/15/25 20:17 02/15/25 20:42 Hydromorphone Hcl 2 Mg/Ml Vial IVPUSH 02/15/25 20:18 2 mg ONCE ONE Administration Protocol Vancomycin HCl 1,000 mg/ 535 mls @ 267.5 mls/hr 02/15/25 15:52 02/15/25 20:52 Vancomycin HCl 750 mg/ Sodium IV 02/15/25 17:51 Infused Chloride ONCE ONE Infusion Cefepime HCl 2 gm in 50 mls @ 100 mls/hr 02/15/25 15:52 02/15/25 16:33 Maxipime IV 02/15/25 16:21 Infused ONCE ONE Infusion Acetaminophen 1,000 mg in 100 mls @ 400 mls/hr 02/15/25 15:54 02/15/25 16:20 Ofirmev IV 02/15/25 16:08 Infused ONCE ONE Infusion Sodium Chloride 2,008.5 mls @ 2,008.5 mls/hr 02/15/25 15:57 02/15/25 17:30 Ns 30 ml/kg infuse over 1 hr (2008.5 ml) 02/15/25 16:56 Infused IV Infusion .Q1H STA Norepinephrine Bitartrate 8 mg in 250 mls @ 0 mls/hr 02/15/25 17:15 02/15/25 22:30 Levophed IVCONT Infused .Q0M SHARON Titration Protocol Per Protocol Propofol 1,000 mg in 100 mls @ 0 mls/hr 02/15/25 17:45 02/15/25 22:32 Diprivan IVCONT Infused .Q0M SHARON Titration Protocol Per Protocol Fentanyl 1,000 mcg in 100 mls @ 0 mls/hr 02/15/25 18:15 02/15/25 22:07 Sublimaze/Ns IVCONT Infused .Q0M SHARON Titration Protocol Per Protocol Lactated Ringer's 1,000 mls @ 999 mls/hr 02/15/25 19:00 02/15/25 21:04 Lr IV 02/15/25 20:00 Infused .Q1H1M SHARON Infusion Dexmedetomidine HCl 400 mcg in 100 mls @ 0 mls/hr 02/15/25 20:30 02/15/25 22:07 Precedex IVCONT Infused .Q0M SHARON Titration Protocol Per Protocol Iohexol 100 ml 02/15/25 18:40 02/15/25 18:40 Iohexol 350 Mg/Ml 100 Ml Infus..Btl IV 02/15/25 18:41 65 ml ONCE ONE Administration Ketamine HCl 50 mg 02/15/25 17:33 02/15/25 17:20 Ketamine Hcl/Ns 50 Mg/5 Ml Syringe IVPUSH 02/15/25 17:34 50 mg ONCE ONE Administration Ketamine HCl 100 mg 02/15/25 16:56 02/15/25 16:56 Ketamine Hcl/Ns 100 Mg/10 Ml Syringe IVPUSH 02/15/25 16:57 100 mg ONCE ONE Administration Methylprednisolone Sodium Succinate 125 mg 02/15/25 17:01 02/15/25 18:47 Methylprednisolone Sod Succ 125 Mg Vial IVPUSH 02/15/25 17:02 125 mg ONCE ONE Administration Midazolam HCl 4 mg 02/15/25 21:34 02/15/25 21:38 Midazolam Hcl 2 Mg/2 Ml Vial IVPUSH 02/15/25 21:35 4 mg ONCE ONE Administration Midazolam HCl 4 mg 02/15/25 22:01 02/15/25 22:06 Midazolam Hcl 2 Mg/2 Ml Vial IVPUSH 02/15/25 22:02 4 mg ONCE ONE Administration Rocuronium [place] 100 mg 02/15/25 17:32 02/15/25 17:15 Rocuronium [place] 50 Mg/5 Ml Vial IVPUSH 02/15/25 17:33 100 mg ONCE ONE Administration Procedures Central Line Placement Left IJ: Time Out Performed: Yes Patient Placed on Monitor/Pulse Ox: Yes MD Prep: mask, gown and gloves Central Line Prep: Chlorhexidine scrub Ultrasound Used for Placement: Yes Central Line Lumen Inserted: triple Post Procedure: sutured in place, good blood return, all ports aspirated, flushed, capped and sterile dressing applied Post Procedure X-Ray: tip of catheter in good position and no pneumothorax seen Patient Tolerated Procedure: well and no complications Complications: none Intubation Intubation Type:: Endotracheal Tube Insertion Intubation Date:: 02/15/25 Intubation Time:: 17:30 Time out performed: Yes sedative: Etomidate Mg Given: 20 paralytic: Rocuronium Mg Given: 100 Laryngoscope: fiber optic video scope ET Tube Size: 7.5 ET Tube Uncuffed: Yes Tube Secured Depth (cm): 23 Tube Secured Location: teeth Tube Placement Confirmation: visualized tube passing through cords, equal breath sounds bilaterally and confirmation by capnometry Patient Tolerated Procedure: no complications Intubation Complications: none Medical Decision Making Medical Decision Making [facility] Narrative: 1518: Code sepsis is activated this is a 30-year-old male with history of spinal epidural abscess in the neck, had IR drainage x2 at [facility], continues to use IV fentanyl and cocaine, has been having stiffness in his bilateral upper extremities overall does not feel well and states reminds him of his prior infection, has had no numbness or weakness in his lower extremities except for stiffness, no urinary retention no loss of bowel or bladder function, did not endorse low back pain, he mostly endorses neck stiffness. This is going on for the past 5 days accompanied by difficulty breathing and chest pain seems that it is more due to the back pain when he takes a deep breath. Bedside ultrasound without pericardial effusion, no obvious RV strain, IVC is fully collapsed, he received empiric therapy with vancomycin and cefepime, as he is hypotensive on initial evaluation as well, we will give 30 cc/kilos IV fluids. MRI has been ordered in triage, I spoke with Dr. Hoffmann radiologist, stated that we are only able either to do 1 site with IV contrast or do screening T1-T2 sequences of the entire spine and if anything comes back abnormal that will be recommendation for IV contrast, I am going to go ahead and screen her spine and there is anything abnormal I think he is going to end up being transferred to [facility] where he had his prior procedures however if everything is normal he can stay here for antibiotic therapy and making sure he does not have bacteremia. 16:37 patient is respiratory status increasingly became worse he became more tachycardic and hypoxic, we are moving him over to another room, starting BiPAP nebulizer treatment, also spoke to the patient if he is not getting better I am going to intubate him, chest x-ray suspicious for septic emboli CTA ordered. And as discussed there was no evidence of RV strain on his ultrasound so this is at least to me does not appear to be PE with RV strain necessitating TNK 17:27 at this point patient is intubated, my suspicion is that he had a status asthmaticus he does have history of asthma, we placed him on BiPAP, push dose epi doses were given up to 120 mcg, thereafter he was also placed on Levophed drip, nebulizer treatment, his hypoxia started resolving, his blood pressure started increasing as well, but at that point he was already significantly sedated with ketamine and prior to that you received Dilaudid, and I gave him Valium as well. We will obtain postprocedural x-ray, we will contact [facility] at this point I spoke to Dr. Busby from ICU we have no beds in ICU 17:50pm has a triple-lumen in place, left IJ, pulse triple-lumen intubation and NG tube placement x-ray checked, no pneumothorax, good line placement Differential Diagnosis Differential Diagnoses: The differential diagnosis associated with the presentation includes Endocarditis, bacteremia, spinal epidural abscess, pneumonia, UTI, cellulitis Lab Data MDM Lab Attestation statement: I reviewed the patient's lab results. 02/15/25 15:32 02/15/25 15:32 Labs: Lab Results 02/15/25 02/15/25 02/15/25 Range/Units 15:32 16:09 18:03 WBC 28.8 H (4.8-10.8) X10*3/uL RBC 4.12 L (4.60-5.80) X10*6/uL Hgb 11.9 L (14.0-18.0) g/dl Hct 33.4 L D (42.0-52.0) % MCV 81.1 (80.0-98.0) fL MCH 28.9 (27.0-33.0) pg MCHC 35.6 (31.0-36.0) g/dl RDW 14.5 (11.0-16.0) % Plt Count 188 (160-400) X10*3/uL MPV 11.0 (9.4-12.4) fL Immature Gran % (Auto) 1.7 H (0.0-0.4) % Neut % (Auto) 89.7 H (45-73) % Lymph % (Auto) 4.1 L (20-40) % Custer % (Auto) 4.2 (2-11) % Eos % (Auto) 0.0 (0-4) % Baso % (Auto) 0.3 (0-2) % Lymph # (Auto) 1.2 (1.2-4.9) X10*3/uL [place] # (Auto) 1.2 (0.1-1.2) X10*3/uL Eos # (Auto) 0.0 (0.0-0.4) X10*3/uL Baso # (Auto) 0.1 (0.0-0.2) X10*3/uL Abs Immat Gran (auto) 0.49 H (0.00-0.03) X10*3/uL Absolute Neuts (auto) 25.9 H (2.0-8.3) x10*3/uL Absolute Nucleated RBC 0.000 (0.0-0.012) X10*3/uL Nucleated RBC % (auto) 0.0 (0.0-0.2) /100WBC Smear Tech's Comments VERIFIED ESR 92 H (0-15) MM/HR O2 Saturation 100.0 % ABG pH at Pt Temp 7.16 L* (7.35-7.45) ABG pCO2 at Pt Temp 55 H (32-45) mmHg ABG pO2 at Pt Temp 464 H (83-108) mmHg ABG HCO3 20 L (22-26) mmol/L ABG Base Excess (Actual) -9.1 mmol/L Sodium 128 L (135-145) mmol/L Potassium 4.4 (3.3-5.1) mmol/L Chloride 89 L (96-108) mmol/L Carbon Dioxide 24 (22-29) mmol/L Anion Gap 19 (12-20) BUN 45 H (9-16) mg/dL Creatinine 1.62 H (0.5-1.4) mg/dL Estim Creat Clear Calc 61.9 Estimated GFR 50 Random Glucose 93 (60-115) mg/dL Lactic Acid 2.4 H* (0.5-2.0) mmol/L Lactic Acid F/U @ 2Hr (0.5-2.0) mmol/L Calcium 8.4 D (8.4-10.2) mg/dL Total Bilirubin 0.6 (0.0-1.0) mg/dL Direct Bilirubin 0.3 (0.0-0.5) mg/dL AST 55 H (5-37) U/L ALT 22 (0-40) U/L Alkaline Phosphatase 170 H (39-117) U/L Troponin I High Sens 4.6 (<3.5-35.0) ng/L C-Reactive Protein 33.11 H (< or = 0.50) mg/dL Total Protein 7.7 (6.5-8.0) g/dL Albumin 3.3 L (3.5-5.0) g/dL Urine Color Urine Appearance Urine pH (5.0-9.0) Ur Specific Cameron (1.005-1.025) Urine Protein (Neg-Trace) mg/dL Urine Glucose (UA) (Negative) mg/dL Urine Ketones (Negative) mg/dL Urine Blood (Negative) Urine Nitrite (Negative) Ur Leukocyte Esterase (Negative) Urine RBC (0-2) /HPF Urine WBC (0-5) /HPF Ur Squamous Epith Cells (0-2) /HPF Urine Bacteria (None Seen) Hyaline Casts (0-2) /LPF Urine Yeast Urine Opiates Screen (Not Detect) Ur Buprenorphine Scrn (Not Detect) ng/mL Ur Oxycodone Screen (Not Detect) ng/mL Urine Methadone Screen (Not Detect) ng/mL Urine Fentanyl Screen (Not Detect) Ur Barbiturates Screen (Not Detect) Ur Phencyclidine Scrn (Not Detect) Ur Amphetamines Screen (Not Detect) U Benzodiazepines Scrn (Not Detect) Urine Cocaine Screen (Not Detect) U Marijuana (THC) Screen (Not Detect) Influenza Type A (PCR) NEGATIVE (Negative) Influenza Type B (PCR) NEGATIVE (Negative) RSV RNA Qual (PCR) NEGATIVE (Negative) SARS-CoV-2 RNA (RT-PCR) NEGATIVE (Negative) 02/15/25 02/15/25 02/15/25 Range/Units 18:25 18:26 18:55 WBC (4.8-10.8) X10*3/uL RBC (4.60-5.80) X10*6/uL Hgb (14.0-18.0) g/dl Hct (42.0-52.0) % MCV (80.0-98.0) fL MCH (27.0-33.0) pg MCHC (31.0-36.0) g/dl RDW (11.0-16.0) % Plt Count (160-400) X10*3/uL MPV (9.4-12.4) fL Immature Gran % (Auto) (0.0-0.4) % Neut % (Auto) (45-73) % Lymph % (Auto) (20-40) % [place]uster % (Auto) (2-11) % Eos % (Auto) (0-4) % Baso % (Auto) (0-2) % Lymph # (Auto) (1.2-4.9) X10*3/uL [place] # (Auto) (0.1-1.2) X10*3/uL Eos # (Auto) (0.0-0.4) X10*3/uL Baso # (Auto) (0.0-0.2) X10*3/uL Abs Immat Gran (auto) (0.00-0.03) X10*3/uL Absolute Neuts (auto) (2.0-8.3) x10*3/uL Absolute Nucleated RBC (0.0-0.012) X10*3/uL Nucleated RBC % (auto) (0.0-0.2) /100WBC Smear Tech's Comments ESR (0-15) MM/HR O2 Saturation % ABG pH at Pt Temp (7.35-7.45) ABG pCO2 at Pt Temp (32-45) mmHg ABG pO2 at Pt Temp (83-108) mmHg ABG HCO3 (22-26) mmol/L ABG Base Excess (Actual) mmol/L Sodium (135-145) mmol/L Potassium (3.3-5.1) mmol/L Chloride (96-108) mmol/L Carbon Dioxide (22-29) mmol/L Anion Gap (12-20) BUN (9-16) mg/dL Creatinine (0.5-1.4) mg/dL Estim Creat Clear Calc Estimated GFR Random Glucose (60-115) mg/dL Lactic Acid (0.5-2.0) mmol/L Lactic Acid F/U @ 2Hr 1.9 (0.5-2.0) mmol/L Calcium (8.4-10.2) mg/dL Total Bilirubin (0.0-1.0) mg/dL Direct Bilirubin (0.0-0.5) mg/dL AST (5-37) U/L ALT (0-40) U/L Alkaline Phosphatase (39-117) U/L Troponin I High Sens (<3.5-35.0) ng/L C-Reactive Protein (< or = 0.50) mg/dL Total Protein (6.5-8.0) g/dL Albumin (3.5-5.0) g/dL Urine Color Yellow Urine Appearance Cloudy Urine pH 5.5 (5.0-9.0) Ur Specific Cameron 1.020 (1.005-1.025) Urine Protein 100 (2+) H (Neg-Trace) mg/dL Urine Glucose (UA) Negative (Negative) mg/dL Urine Ketones Trace (Negative) mg/dL Urine Blood Small (1+) H (Negative) Urine Nitrite Negative (Negative) Ur Leukocyte Esterase Negative (Negative) Urine RBC 0-2 (0-2) /HPF Urine WBC 0-5 (0-5) /HPF Ur Squamous Epith Cells >20 (0-2) /HPF Urine Bacteria None Seen (None Seen) Hyaline Casts >20 (0-2) /LPF Urine Yeast Present Urine Opiates Screen POSITIVE H (Not Detect) Ur Buprenorphine Scrn Positive H (Not Detect) ng/mL Ur Oxycodone Screen Not Detected (Not Detect) ng/mL Urine Methadone Screen Not Detected (Not Detect) ng/mL Urine Fentanyl Screen POSITIVE H (Not Detect) Ur Barbiturates Screen Not Detected (Not Detect) Ur Phencyclidine Scrn Not Detected (Not Detect) Ur Amphetamines Screen Not Detected (Not Detect) U Benzodiazepines Scrn Not Detected (Not Detect) Urine Cocaine Screen POSITIVE H (Not Detect) U Marijuana (THC) Screen POSITIVE H (Not Detect) Influenza Type A (PCR) (Negative) Influenza Type B (PCR) (Negative) RSV RNA Qual (PCR) (Negative) SARS-CoV-2 RNA (RT-PCR) (Negative) 02/15/25 Range/Units 19:44 WBC (4.8-10.8) X10*3/uL RBC (4.60-5.80) X10*6/uL Hgb (14.0-18.0) g/dl Hct (42.0-52.0) % MCV (80.0-98.0) fL MCH (27.0-33.0) pg MCHC (31.0-36.0) g/dl RDW (11.0-16.0) % Plt Count (160-400) X10*3/uL MPV (9.4-12.4) fL Immature Gran % (Auto) (0.0-0.4) % Neut % (Auto) (45-73) % Lymph % (Auto) (20-40) % [place] % (Auto) (2-11) % Eos % (Auto) (0-4) % Baso % (Auto) (0-2) % Lymph # (Auto) (1.2-4.9) X10*3/uL [place] # (Auto) (0.1-1.2) X10*3/uL Eos # (Auto) (0.0-0.4) X10*3/uL Baso # (Auto) (0.0-0.2) X10*3/uL Abs Immat Gran (auto) (0.00-0.03) X10*3/uL Absolute Neuts (auto) (2.0-8.3) x10*3/uL Absolute Nucleated RBC (0.0-0.012) X10*3/uL Nucleated RBC % (auto) (0.0-0.2) /100WBC Smear Tech's Comments ESR (0-15) MM/HR O2 Saturation 93.0 % ABG pH at Pt Temp 7.29 L (7.35-7.45) ABG pCO2 at Pt Temp 42 (32-45) mmHg ABG pO2 at Pt Temp 84 (83-108) mmHg ABG HCO3 20 L (22-26) mmol/L ABG Base Excess (Actual) -5.5 mmol/L Sodium (135-145) mmol/L Potassium (3.3-5.1) mmol/L Chloride (96-108) mmol/L Carbon Dioxide (22-29) mmol/L Anion Gap (12-20) BUN (9-16) mg/dL Creatinine (0.5-1.4) mg/dL Estim Creat Clear Calc Estimated GFR Random Glucose (60-115) mg/dL Lactic Acid (0.5-2.0) mmol/L Lactic Acid F/U @ 2Hr (0.5-2.0) mmol/L Calcium (8.4-10.2) mg/dL Total Bilirubin (0.0-1.0) mg/dL Direct Bilirubin (0.0-0.5) mg/dL AST (5-37) U/L ALT (0-40) U/L Alkaline Phosphatase (39-117) U/L Troponin I High Sens (<3.5-35.0) ng/L C-Reactive Protein (< or = 0.50) mg/dL Total Protein (6.5-8.0) g/dL Albumin (3.5-5.0) g/dL Urine Color Urine Appearance Urine pH (5.0-9.0) Ur Specific Cameron (1.005-1.025) Urine Protein (Neg-Trace) mg/dL Urine Glucose (UA) (Negative) mg/dL Urine Ketones (Negative) mg/dL Urine Blood (Negative) Urine Nitrite (Negative) Ur Leukocyte Esterase (Negative) Urine RBC (0-2) /HPF Urine WBC (0-5) /HPF Ur Squamous Epith Cells (0-2) /HPF Urine Bacteria (None Seen) Hyaline Casts (0-2) /LPF Urine Yeast Urine Opiates Screen (Not Detect) Ur Buprenorphine Scrn (Not Detect) ng/mL Ur Oxycodone Screen (Not Detect) ng/mL Urine Methadone Screen (Not Detect) ng/mL Urine Fentanyl Screen (Not Detect) Ur Barbiturates Screen (Not Detect) Ur Phencyclidine Scrn (Not Detect) Ur Amphetamines Screen (Not Detect) U Benzodiazepines Scrn (Not Detect) Urine Cocaine Screen (Not Detect) U Marijuana (THC) Screen (Not Detect) Influenza Type A (PCR) (Negative) Influenza Type B (PCR) (Negative) RSV RNA Qual (PCR) (Negative) SARS-CoV-2 RNA (RT-PCR) (Negative) Independent Interpretation I performed an independent interpretation of an: EKG (135 BPM, somewhat prolonged QTc 507) and Plain X-Ray Interpretation: Suspicious for septic emboli bilaterally versus coin like lesions Chronic Conditions Patient?s care impacted by: Other Polysubstance use disorder Critical Care Time Critical Care Time Total Critical Care Time: 90 Attestation: Time is exclusive of separately billable procedures. Time includes: direct patient care, patient reassessment, coordination of patient care, interpretation of data (laboratory data, pulse oximetry, arterial blood gases and chest xrays), review of patient's medical records, medical consultation and documentation of patient care. Procedures excluded from critical care time: central intravenous line placement and electrocardiography. Discharge Plan Discharge Clinical Impression: Polysubstance use disorder, Sepsis, Acute neck pain, Septic embolism, Asthmaticus, status Patient Disposition: [facility] Hospital Transfer Details: [facility] MICU Prescriptions: No Action ondansetron 4 mg tablet,disintegrating 4 mg PO Q6H Qty: 14 0RF cyclobenzaprine 10 mg tablet 10 mg PO TID PRN (Reason: pain, muscle spasm) Qty: 15 0RF acetaminophen [Tylenol Extra Strength] 500 mg tablet 1,000 mg PO Q6H PRN (Reason: fever or pain) Qty: 20 0RF ibuprofen 400 mg tablet 400 mg PO TID PRN (Reason: fever or pain) Qty: 30 0RF Interventions: Acute Care Transfer Worksheet (ED) Last Done: 02/15/25 22:57 Discharge Date/Time: 02/15/25 22:59 Print Language: Cameroonian
[2025-02-15 15:41] LABS: Basophils Absolute Auto 0.1 X10*3/uL (0.0-0.2); Basophils Percent Auto 0.3 % (0-2); Hematocrit 33.4 % (42.0-52.0); Hemoglobin 11.9 g/dl (14.0-18.0); Imm Gran Abs Auto 0.49 X10*3/uL (0.00-0.03); Imm Gran Pct Auto 1.7 % (0.0-0.4); Lymphocytes Absolute Auto 1.2 X10*3/uL (1.2-4.9); Lymphocytes Percent Auto 4.1 % (20-40); MANUAL DIFF FLAG SCAN; Mean Corpuscular HGB Conc 35.6 g/dl (31.0-36.0); Mean Corpuscular Hemoglobin 28.9 pg (27.0-33.0); Mean Corpuscular Volume 81.1 fL (80.0-98.0); Monocytes Absolute Auto 1.2 X10*3/uL (0.1-1.2); Monocytes Percent Auto 4.2 % (2-11); Neutrophils Absolute Auto 25.9 x10*3/uL (2.0-8.3); Neutrophils Percent Auto 89.7 % (45-73); Platelet Count 188 X10*3/uL (160-400); Red Blood Count 4.12 X10*6/uL (4.60-5.80); Red Cell Distribution Width 14.5 % (11.0-16.0); SCAN SMEAR FLAG 1; White Blood Count 28.8 X10*3/uL (4.8-10.8)
[2025-02-15] MEDS: HYDROmorphone HCl 2 MG/ML VIAL IVPUSH ×3 (15:56→20:42)
[2025-02-15 16:01] LABS: Alanine Aminotransferase 22 U/L (0-40); Albumin Level 3.3 g/dL (3.5-5.0); Alkaline Phosphatase 170 U/L (39-117); Anion Gap 19 (12-20); Aspartate Amino Transferase 55 U/L (5-37); Bilirubin Direct 0.3 mg/dL (0.0-0.5); Bilirubin Total 0.6 mg/dL (0.0-1.0); Blood Urea Nitrogen 45 mg/dL (9-16); C Reactive Protein 33.11 mg/dL (< or = 0.50); Calcium 8.4 mg/dL (8.4-10.2); Carbon Dioxide 24 mmol/L (22-29); Chloride 89 mmol/L (96-108); Creatinine Clr Calc Pharmacy 61.9; Estimated Glomerular Filt Rate 50; Glucose Random 93 mg/dL (60-115); Potassium 4.4 mmol/L (3.3-5.1); Sodium 128 mmol/L (135-145); Total Protein 7.7 g/dL (6.5-8.0)
[2025-02-15] MEDS: Acetaminophen 1,000 MG/100 ML PIGGYBACK 400 MG IV (16:03)
[2025-02-15] MEDS: cefEPime HCl/D5W 2 GM/50 ML PIGGYBACK IV (16:03)
[2025-02-15 16:09] LABS: Troponin-I High Sensitivity 4.6 ng/L (<3.5-35.0)
[2025-02-15 16:10] LABS: Lactic Acid 2.4 mmol/L (0.5-2.0)
[2025-02-15 16:27] LABS: SLIDE REVIEW VERIFIED
[2025-02-15 16:33] LABS: Erythrocyte Sedimentation Rate 92 MM/HR (0-15)
[2025-02-15] MEDS: Norepinephrine Bitartrate/D5W 8 MG/250 ML PLAST..BAG 5.02 MG IVCONT (16:40)
--- NOTE | 2025-02-15 16:47 | PC.NURSE ---
100mcg push epi given by pt weighs 67 kilos
[2025-02-15 16:49] LABS: Influenza A PCR NEGATIVE (Negative); Influenza B PCR NEGATIVE (Negative); Resp Syncy Virus RNA Qual PCR NEGATIVE (Negative); SARS COV2 PCR INHOUSE NEGATIVE (Negative)
[2025-02-15] MEDS: diazePAM 10 MG/2 ML CARTRIDGE 5 MG IVPUSH (16:53)
[2025-02-15] MEDS: Ketamine HCl/NS 100 MG/10 ML SYRINGE IVPUSH (16:56)
[2025-02-15] MEDS: Etomidate 20 MG/10 ML VIAL IVPUSH (17:15)
[2025-02-15] MEDS: Rocuronium Bromide 50 MG/5 ML VIAL 100 MG IVPUSH (17:15)
[2025-02-15] MEDS: EPINEPHrine 1 MG/ML VIAL IVPUSH (17:17)
[2025-02-15] MEDS: Ketamine HCl/NS 50 MG/5 ML SYRINGE IVPUSH (17:20)
[2025-02-15 17:38] LABS: Reflex Lactate? Lactic Acid Added
[2025-02-15 18:12] LABS: ABG Base Excess -9.1 mmol/L; ABG HCO3 20 mmol/L (22-26); ABG pCO2 55 mmHg (32-45); ABG pH 7.16 (7.35-7.45); ABG pO2 464 mmHg (83-108)
[2025-02-15 18:40] LABS: Appearance Urine Cloudy; Color Urine Yellow; Glucose Urine UA Negative (Negative); Leukocyte Esterase Urine Negative (Negative); Nitrite Urine Negative (Negative); PH 5.5 (5.0-9.0); UMIC TRIGGER UA YES; Urine Blood Small (1+) (Negative); Urine Ketones Trace mg/dL (Negative); Urine Protein 100 (2+) mg/dL (Neg-Trace)
[2025-02-15] MEDS: iohexoL 350 MG/ML 100 ML INFUS..BTL IV (18:40)
[2025-02-15] MEDS: vancomycin HCL 1,000 MG, vancomycin HCL 750 MG in 0.9 % Sodium Chloride 500 ML 267.5 MG IV (18:47)
[2025-02-15 18:49] LABS: Amphetamine Screen Urine Not Detected (Not Detect); Barbiturates, Urine Not Detected (Not Detect); Benzodiazepines Screen Urine Not Detected (Not Detect); Buprenorphine Scr Positive (Not Detect); Cannabinoid Screen Urine POSITIVE (Not Detect); Cocaine Screen Urine POSITIVE (Not Detect); Fentanyl, urine POSITIVE (Not Detect); Methadone Screen, Urine Not Detected (Not Detect); Opiate Screen Urine POSITIVE (Not Detect); Oxycodone Screen Urine Not Detected (Not Detect); Phencyclidine Screen Urine Not Detected (Not Detect)
[2025-02-15] MEDS: fentaNYL citrate/NS 1,000 MCG/100 ML PLAST..BAG 2.5 MCG IVCONT (18:58)
[2025-02-15] MEDS: Lactated Ringers 1,000 ML 999 ML IV (19:10)
--- NOTE | 2025-02-15 19:10 | PC.NURSE ---
Propofol titrated @ 1905 to 40mcg/kg/min d/t pt bucking tube/moving extremities. Care transferred to Amber ROD and Rj RN @ this time.
[2025-02-15] MEDS: propofoL 1,000 MG/100 ML VIAL 20.09 MG IVCONT (19:11)
[2025-02-15 19:15] LABS: ~Lactic Acid-LAB USE ONLY 1.9 mmol/L (0.5-2.0)
[2025-02-15 19:15] LABS: Bacteria Urine None Seen (None Seen); Hyaline Casts Urine >20 /LPF (0-2); RBC Urine 0-2 /HPF (0-2); Squamous Epithelial Cell Urine >20 /HPF (0-2); WBC Urine 0-5 /HPF (0-5)
--- NOTE | 2025-02-15 19:37 | PC.NURSE ---
this rn assumed care of pt at 1900. pt intubated at this time, vs remain stable, soft restraints in place for safety of pt. rt at bedside
--- NOTE | 2025-02-15 19:37 | PC.NURSE ---
Late charting d/t patient care. 1510- Pt arrived to ED 8, alert/ambulatory with steady gait, a/ox3. Speaking in full sentences, respirations even and unlabored, no increased wob/sob noted- pt endorsing mild SOB, O2 sats remained >92% on RA. Endorsing generalized pain throughout body- limited ROM on upper extremities d/t pain and weakness. Hx of cervical epidural abscess with I&D in the past- pt concerned abscess has returned. IVDU- last used yesterday. Temp 100.3 orally in triage. Pt pale/clammy skin, tachycardic in the 140s on ekg monitor, O2 sats >92%- MD aware and at bedside. 18g IV placed R upper bicep by MD Bates. BPs 100s/60s- cycling q5 to monitor, rectal temp 103. 1518- Sepsis alert called d/t tachycardia, febrile, tachypnea, recent hx of infection. Pt BP 90s/50s- MD aware, cycling q5 to monitor. Labs and cultures obtained, sepsis fluids/antibiotics infusing after labs obtained. Pt BP remains 90s/50s, endorsing 10/10 pain throughout body. Medicated per OCT for pain. 1600- This RN was bedside with pt, endorsing 10/10 pain after medication administration. Remained tachycardic on ekg monitor 130s-140s, O2 sat remained >92%. Pt resting in bed with call benavidez within reach. 1605- dwarf tree grower notified this RN pt was up at the side of the bed c/o chest pain/sob. This RN went to bedside, MD immediately made aware. Pt diaphoretic, cool/clammy to touch, tripod position at end of the bed, O2 sats remained >92%. Placed on 2L NC to help wob/sob- Respiratory called, Walter ABRAHAM at bedside. 1615- Pt moved from ED 8 to ED 5 for BIPAP/ ?intubation d/t increasing wob/sob. Pt remains in tripod position, stating he can't breathe. Placed on BIPAP by Walter ABRAHAM- sats maintained >92%, wob improved slightly. Per MD- plan to intubate. BP cycling q5- remains hypotensive 90s/50s. IVF infusing with pressure bag. 1640- Verbal order by MD to start Levophed @ 0.04mcg/kg- BP improved to 100s/50s. Remains tachycardic on monitor 140s, tachypneic but improved wob with BIPAP. 1715- Pt intubated- refer to MAR for medications administered. 7.5 ETT, 24 @ lip, + color change, equal breath sounds bilaterally. NG tube placed- draining dark red. MD Bates attempting to get second IV line ultrasound guided unsuccessful. MARIOLA Pelletier at bedside for central line placement. 16fr temp sensing lehman placed- draining yellow/cloudy urine. Temp decreased to 99.9 core. Pt remains diaphoretic- cleaned up and new linens placed d/t incontinent of urine.
[2025-02-15] MEDS: diazePAM 10 MG/2 ML CARTRIDGE IVPUSH ×3 (19:41→21:04)
[2025-02-15 19:48] LABS: ABG Base Excess -5.5 mmol/L; ABG HCO3 20 mmol/L (22-26); ABG pCO2 42 mmHg (32-45); ABG pH 7.29 (7.35-7.45); ABG pO2 84 mmHg (83-108)
[2025-02-15 19:49] LABS: ABG Refer to POC result
[2025-02-15 19:49] LABS: ABG Refer to POC result
--- NOTE | 2025-02-15 19:55 | PC.NURSE ---
pt bp noted to be low, propofol titrated per mar per provider.
[2025-02-15] MEDS: Norepinephrine Bitartrate/D5W 8 MG/250 ML PLAST..BAG 6.28 MG IVCONT (19:59)
[2025-02-15] MEDS: dexmedeTOMIDine HCL/NS 400 MCG/100 ML PLAST..BAG 16.74 MCG IVCONT (20:24)
--- NOTE | 2025-02-15 21:29 | PC.NURSE ---
[facility] at bedside for transport and report
[2025-02-15] MEDS: fentaNYL citrate/PF 100 MCG/2 ML VIAL IVPUSH ×2 (21:37→22:05)
[2025-02-15] MEDS: Midazolam HCl 2 MG/2 ML VIAL 4 MG IVPUSH ×2 (21:38→22:06)
--- NOTE | 2025-02-15 21:49 | PC.NURSE ---
report given to Ben ROD at [facility]
--- NOTE | 2025-02-15 22:30 | PC.NURSE ---
pt transported at this time to [facility] at this time, soft restraints removed. pt had levophed running on dc , waste amount of 76.452 on d/c as well as propofol with a waste amount of 47.448 on d/c
== END 2025-02-15 22:59 | disposition short-term general hospital (02) ==
PROVIDERS: Emergency Medicine; Physician Assistant; Emergency Provider Emergency Medicine Emergency Medical Services
DX: F19.10 Other psychoactive substance abuse, uncomplicated (principal); I76 Septic arterial embolism; A41.01 Sepsis due to Methicillin susceptible Staphylococcus aureus; J45.902 Unspecified asthma with status asthmaticus; M54.2 Cervicalgia; R07.9 Chest pain, unspecified; R53.1 Weakness; R00.0 Tachycardia, unspecified; R09.02 Hypoxemia; R06.82 Tachypnea, not elsewhere classified; R50.9 Fever, unspecified; R06.02 Shortness of breath; I95.9 Hypotension, unspecified; Z03.818 Encounter for observation for suspected exposure to other biological agents ruled out
CPT/HCPCS: 0241U; 31500; 36415; 36556; 43752; 71045; 71275; 80048; 80076; 80307; 81001; 82803; 83605; 84484; 85025; 85652; 86140; 87040; 87077; 87147; 87186; 87205; 93005; 94002; 96361; 96365; 96366; 96367; 96368; 96375; 96376; 99285; 99291; 99292; J0131; J0171; J0692; J1171; J2250; J2704; J2919; J3010; J3360; J3370; J7120; Q9967

== ENCOUNTER → 2025-02-15 14:49 | Outpatient (BNV) | payer OTHER, SELFPAY | PROVIDERS: Emergency Provider Emergency Medicine Emergency Medical Services; Visit Provider Internal Medicine Cardiovascular Disease | DX: I45.10 Unspecified right bundle-branch block (principal); I47.10 Supraventricular tachycardia, unspecified | CPT/HCPCS: 93010 ==

== ENCOUNTER → 2025-02-15 15:01 | Outpatient (BNV) | payer OTHER, SELFPAY | PROVIDERS: Emergency Provider Emergency Medicine; Visit Provider Radiology Diagnostic Radiology | DX: J18.9 Pneumonia, unspecified organism (principal); R91.8 Other nonspecific abnormal finding of lung field; R59.0 Localized enlarged lymph nodes; Z93.0 Tracheostomy status | CPT/HCPCS: 71045; 71275 ==